=== PATIENT | female | born 1945 | race Caucasian/White ===

== ENCOUNTER 2019-11-19 09:52 | Outpatient (RCR) | payer MEDICARE, SELFPAY ==
[2019-11-19 10:36] LABS: Basophils % 0.5 %; Eosinophils # 0.1 10^3/uL (0.0-0.8); Eosinophils % 1.2 %; Hematocrit 37.4 % (37.0-47.0); Hemoglobin 12.3 g/dL (11.5-15.3); Lymphocytes # 0.9 10^3/uL (0.8-4.8); Lymphocytes % 22.3 %; Mean Corpuscular HGB Conc 32.9 g/dL (30.0-36.0); Mean Corpuscular Hemoglobin 30.3 pg (28.0-34.0); Mean Corpuscular Volume 92.1 fL (81-99); Mean Platelet Volume 8.6 fL (7.4-10.4); Monocytes # 0.4 10^3/uL (0.2-0.9); Monocytes % 9.7 %; Neutrophils # 2.7 10^3/uL (1.8-7.7); Neutrophils % 66.1 %; Nucleated Red Blood Cells % 0 %; Platelet Count 184 10^3/cmm (130-400); Red Blood Count 4.06 10^6/uL (4.1-5.3)
[2019-11-19 10:47] LABS: Alanine Aminotransferase 17 U/L (0-33); Albumin Level 4.7 g/dL (3.5-5.2); Alkaline Phosphatase 93 IU/L (35-105); Anion Gap 13.7 (5-19); Aspartate Amino Transferase 24 U/L (0-32); Blood Urea Nitrogen 16 mg/dL (8-23); Calcium 10.5 mg/Dl (8.8-10.2); Carbon Dioxide 28 mmol/L (22-29); Chloride 98 mmol/L (98-107); Globulin 3.1 g/dL (1.3-4.6); Glucose 93 mg/dL (74-106); Potassium 4.7 mmol/L (3.5-5.1); Sodium 135 mmol/L (136-145); Total Bilirubin 0.4 mg/dL (0.15-1.2); Total Protein 7.8 g/dL (6.6-8.7)
--- NOTE | 2019-11-19 12:26 | ONC FU_ITS ---
Dr. Gaxiola follow up note Patient: Gudelia More Unit #: [id number]: 1945 Dicatated By: Mike Gaxiola M.D.Date of Visit:Nov 19, 2019 Onc Med Follow-up/Prog Note History of Present Illness: Mrs. Gudelia More, is a 74-year-old female who recently underwent follow-up mammogram on 04/12/2019 which showed asymmetry in the upper outer quadrant of right breast subsequently underwent mammogram/us on 05/12/2019, which showed at 10:00 position 4 cm from the nipple of right breast, a hypoechoic area, BI-RADS 4C-suspicious moderate Thereafter underwent ultrasound-guided biopsy of breast lesion on 05/26/2019 which showed infiltrating ductal carcinoma. She was referred to Dr. Oliva, who performed right breast lumpectomy with sentinel lymph node biopsy on 06/24/2019 and final pathology report came back 1.7 x 1 cm infiltrating ductal carcinoma with clear surgical margins,T1c and sentinel lymph node was negative for metastatic disease N0 ER +92% and ME +9% and HER-2/alena negative Oncotype DX score done on 08/13/2019 showed low recurrence score at 15, with that absolute benefit from chemotherapy is less than 1% and distance recurrence risk at 9 years with aromatase inhibitor is about 4% Started on Arimidex 1 mg by mouth daily along with vitamin D and calcium supplements on 07/07/2019 for 5 years s/p postlumpectomy radiation therapy Patient tolerated procedure well patient denies any history of hormone supplements, she has history of hysterectomy for heavy menstrual periods around age 38 Came for follow-up, denies any specific complaints, no hot flashes, no fever or chills, no nausea or vomiting, no diarrhea constipation, tolerating Arimidex well. Medications: Anastrozole 1 Tablet (of 1 mg) Tablet Oral daily, Atorvastatin Calcium 1 Tablet (of 10 mg) Oral daily, Calcium 1 Tablet (of 600 mg) Oral daily, Cholecalciferol 1 Tablet (of 800 Units) Oral daily, Metoprolol Succinate ER 2 Tablet (of 50 mg) Tablet SR 24 HR Oral daily, raNITIdine HCl 1 Capsule (of 300 mg) Oral daily Allergies: No Known Allergies. Review of Systems: Review of Systems is not available for this patient. Vital Signs: Performed on Nov 19, 2019 11:28 Height - 65.00 in Weight - 154.4 lbs (HIGH) BSA - 1.77 sq.m BMI - 25.69 Temperature - 97.3 F (LOW) Pulse - 62 /min Respiration - 18 /min BP - 144/68 mm(hg) (HIGH) O2 Sat - 99 % Pain - 0 Performance Status: 0 - Fully active, able to carry on all predisease activities without restrictions. (ECOG) Physical Examination: Respiratory - Lungs are clear to auscultation without rhonchi or wheezing, Cardiovascular - Regular rate and rhythm of heart, Extremities - no edema. Lab/Imaging: Test performed on Aug 04, 2019 09:49 Sodium 131 mmol/L Potassium 4.0 mmol/L Chloride 96 mmol/L CO2 23 mmol/L Anion Gap 16.0 BUN 17 mg/dL Creatinine 0.8 mg/dL Cr Clearance (Est) 62.1300 mL/min Glucose 106 mg/dl Calcium 9.7 mg/dL Protein, Total 7.5 g/dL Albumin 4.3 g/dL Globulin 3.2 gm/dL Bilirubin, Total 0.4 mg/dL ALT (SGPT) 12 U/L AST (SGOT) 20 U/L Alkaline Phosphatase 81 U/L WBC 4.4 /cmm RBC 4.04 10 6/cmm HGB 13.2 g/dl HCT 36.6 % MCV 90.5 /cmm MCH 32.6 pg MCHC 36.0 g/dl RDW 12.5 % Platelet Count 199 10 3/cmm MPV 6.7 fl Neutrophils 2.9 10 3/cmm Lymphocytes 1.0 10 3/cmm Monocytes 0.5 10 3/cmm Eosinophils 0.1 10 3/cmm Basophils 0.0 10 3/cmm Neutrophil % 65.0 % Lymphocyte % 22.7 % Monocyte % 10.4 % Eosinophil % 1.2 % Basophils % 0.7 % Impression: Infiltrating ductal carcinoma of right breast status post right lumpectomy and sentinel lymph node biopsy done on 06/24/2019 final pathology report showed 1.7 x 1 cm tumor with clear surgical margins T1c, and sentinel lymph node biopsy showed no evidence of metastatic disease N0 Stage (pT1c, pN0,Mx ), IA ER 92%, ME 9%, HER-2/alena negative Oncotype DX score checked on 08/13/2019 showed low recurrence score at 15, with that distant recurrence risk at 9 years is about 4% and absolute benefit from chemotherapy is less than 1%. Next Arimidex 1 mg by mouth daily was started on 07/07/2019 for 5 years along with vitamin D and calcium supplement Status post postlumpectomy radiation therapy Plan: Discussed with patient regarding her labs white blood count 4 hemoglobin 12.3 crit 37.4 platelets 184,000 CMP within normal limit except calcium 10.5 Clinically, patient is doing well tolerating adjuvant hormonal therapy with Arimidex, well but with expected side effects. Her follow-up lab shows mild hypercalcemia , patient on vitamin D and calcium supplement along with Arimidex so we will hold her calcium supplement while continue vitamin D and then she will return to clinic in 6 months with CBC CMP. Signed By: Mike Gaxiola M.D. <<Signature on File>>
== END 2019-12-10 23:59 | disposition home or self-care (01) ==
LOC: ONCMED 09:52
PROVIDERS: Family Provider Family Medicine; Visit Provider Internal Medicine Hematology & Oncology
DX: C50.411 Malignant neoplasm of upper-outer quadrant of right female breast (principal); Z17.0 Estrogen receptor positive status [ER+]; Z79.811 Long term (current) use of aromatase inhibitors; Z92.3 Personal history of irradiation
CPT/HCPCS: 80053; 85025; 99214

== ENCOUNTER 2020-05-19 08:41 | Outpatient (CLI) | payer MEDICARE, SELFPAY ==
[2020-05-19 09:06] LABS: Basophils % 0.7 %; Eosinophils # 0.1 10^3/uL (0.0-0.8); Eosinophils % 1.6 %; Hematocrit 37.6 % (37.0-47.0); Hemoglobin 12.4 g/dL (11.5-15.3); Lymphocytes # 1.1 10^3/uL (0.8-4.8); Mean Corpuscular Hemoglobin 30.7 pg (28.0-34.0); Mean Corpuscular Volume 93.1 fL (81-99); Mean Platelet Volume 8.4 fL (7.4-10.4); Monocytes # 0.4 10^3/uL (0.2-0.9); Monocytes % 9.4 %; Neutrophils # 2.64 10^3/uL (1.8-7.7); Neutrophils % 61.8 %; Nucleated Red Blood Cells % 0 %; Platelet Count 174 10^3/cmm (130-400); Red Blood Count 4.04 10^6/uL (4.1-5.3); White Blood Count 4.3 10^3/uL (4.0-10.0)
[2020-05-19 09:28] LABS: Alanine Aminotransferase 23 U/L (0-33); Albumin Level 4.3 g/dL (3.5-5.2); Alkaline Phosphatase 85 IU/L (35-105); Anion Gap 13.9 (5-19); Aspartate Amino Transferase 27 U/L (0-32); Blood Urea Nitrogen 17 mg/dL (8-23); Calcium 9.7 mg/dL (8.5-10.5); Carbon Dioxide 26 mmol/L (22-29); Chloride 100 mmol/L (98-107); Globulin 3.1 g/dL (1.3-4.6); Glucose 158 mg/dL (65-115); Osmolality Calculated 282 mOsm/kg (285-295); Potassium 3.9 mmol/L (3.5-5.1); Sodium 136 mmol/L (136-145); Total Bilirubin 0.2 mg/dL (0.15-1.2); Total Protein 7.4 g/dL (6.6-8.7)
--- NOTE | 2020-05-19 10:24 | ONC FU_ITS ---
Dr. Gaxiola follow up note Patient: Gudelia More Unit #: [id number]: 1945 Dicatated By: Mike Gaxiola M.D.Date of Visit:May 19, 2020 Onc Med Follow-up/Prog Note History of Present Illness: Mrs. Gudelia More, is a 74-year-old female who recently underwent follow-up mammogram on 04/12/2019 which showed asymmetry in the upper outer quadrant of right breast subsequently underwent mammogram/us on 05/12/2019, which showed at 10:00 position 4 cm from the nipple of right breast, a hypoechoic area, BI-RADS 4C-suspicious moderate Thereafter underwent ultrasound-guided biopsy of breast lesion on 05/26/2019 which showed infiltrating ductal carcinoma. She was referred to Dr. Oliva, who performed right breast lumpectomy with sentinel lymph node biopsy on 06/24/2019 and final pathology report came back 1.7 x 1 cm infiltrating ductal carcinoma with clear surgical margins,T1c and sentinel lymph node was negative for metastatic disease N0 ER +92% and ND +9% and HER-2/alena negative Oncotype DX score done on 08/13/2019 showed low recurrence score at 15, with that absolute benefit from chemotherapy is less than 1% and distance recurrence risk at 9 years with aromatase inhibitor is about 4% Started on Arimidex 1 mg by mouth daily along with vitamin D and calcium supplements on 07/07/2019 for 5 years s/p postlumpectomy radiation therapy Patient tolerated procedure well patient denies any history of hormone supplements, she has history of hysterectomy for heavy menstrual periods around age 38 Came for follow-up, denies any specific complaints, no fever chills, no nausea or vomiting, no diarrhea constipation, no new bony pains, occasionally hot flashes otherwise tolerating Arimidex well Medications: Anastrozole 1 Tablet (of 1 mg) Tablet Oral daily, Atorvastatin Calcium 1 Tablet (of 10 mg) Oral daily, Calcium 1 Tablet (of 600 mg) Oral daily, Cholecalciferol 1 Tablet (of 800 Units) Oral daily, Metoprolol Succinate ER 2 Tablet (of 50 mg) Tablet SR 24 HR Oral daily, raNITIdine HCl 1 Capsule (of 300 mg) Oral daily Allergies: No Known Allergies. Review of Systems: Constitutional - Appetite is fair and weight has increased. No fever, chills, hot flashes, or night sweats. Energy level is fair, ENMT - No sinus congestion/drainage. No mouth sores. No sore throat or difficulty swallowing, Hematologic/Lymphatic - No abnormal bruising or bleeding, Respiratory - No shortness of breath. No cough. No pleuritic pain or hemoptysis, Cardiovascular - No angina pain. No palpitations, Gastrointestinal - No nausea or vomiting. No heartburn or acid reflux. No diarrhea, occasional constipation. No blood in the stool or black stools, Genitourinary (F) - No dysuria or hematuria. No urinary frequency. No urgency or incontinence, Musculoskeletal - Positive for joint pain, Neurologic - No headache, occasional dizziness. No numbness/paresthesias or other focal neurologic symptoms, Psychiatric - No anxiety or depression. No insomnia. Vital Signs: Performed on May 19, 2020 10:02 Height - 65.00 in Weight - 164.8 lbs (HIGH) BSA - 1.82 sq.m BMI - 27.42 Temperature - 97.7 F (LOW) Pulse - 64 /min Respiration - 16 /min BP - 140/67 mm(hg) O2 Sat - 97 % Pain - 0 Performance Status: 0 - Fully active, able to carry on all predisease activities without restrictions. (ECOG) Physical Examination: Respiratory - Lungs are clear, Cardiovascular - Regular rate and rhythm of heart, Gastrointestinal - Soft, bowel sounds present, Extremities - No visible edema or rash. Lab/Imaging: Most recent lab results are not available for this patient. Impression: Infiltrating ductal carcinoma of right breast status post right lumpectomy and sentinel lymph node biopsy done on 06/24/2019 final pathology report showed 1.7 x 1 cm tumor with clear surgical margins T1c, and sentinel lymph node biopsy showed no evidence of metastatic disease N0 Stage (pT1c, pN0,Mx ), IA ER 92%, ND 9%, HER-2/alena negative Oncotype DX score checked on 08/13/2019 showed low recurrence score at 15, with that distant recurrence risk at 9 years is about 4% and absolute benefit from chemotherapy is less than 1%. Next Arimidex 1 mg by mouth daily was started on 07/07/2019 for 5 years along with vitamin D and calcium supplement Status post postlumpectomy radiation therapy Plan: Discussed with patient regarding her labs white blood count 4.3 hemoglobin 12.4 hematocrit 37.6 platelets 174,000 CMP within normal limits Clinically, patient is doing well with no signs symptoms suggestive of recurrence of disease, tolerating Arimidex/vitamin D well, will continue with same and she will return to clinic in 4 months with CBC CMP and follow-up mammogram Signed By: Mike Gaxiola M.D. <<Signature on File>>
== END 2020-05-19 08:42 | disposition home or self-care (01) ==
LOC: ONCMED 08:45
PROVIDERS: PCP Family Medicine; Visit Provider Internal Medicine Hematology & Oncology
DX: C50.411 Malignant neoplasm of upper-outer quadrant of right female breast (principal); Z17.0 Estrogen receptor positive status [ER+]; Z79.811 Long term (current) use of aromatase inhibitors; Z92.3 Personal history of irradiation
CPT/HCPCS: 36415; 80053; 85025; 99214

== ENCOUNTER 2020-09-15 09:31 | Outpatient (CLI) | payer MEDICARE, SELFPAY ==
--- NOTE | 2020-09-15 09:34 | MM_ITS ---
WS: [id number] Bilateral diagnostic digital mammogram, 09/15/2020 Clinical Data: HX OF BREAST CA Comparison: 06/24/2019, 06/08/2019, 04/12/2019, 06/10/2017, 05/26/2017, 01/24/2015, 08/27/2012, 11/20/2009. Findings: There is distortion of the right breast in the upper outer quadrant from treatment. No evidence of re sidual mass is seen. There are no spiculated masses or clustered calcifications. The left breast is n ormal. The breast parenchymal pattern shows heterogeneous density. MM/[id number] Impression: 1. Distortion of the upper outer quadrant right breast is result of treatment. 2. No evidence of residual carcinoma or recurrence. 3. Negative left breast. 4. Recommend annual mammograms. BIRADS: 2-Benign FOLLOW UP: 1 Year Follow-up The CAD roving or yarn color checker was used.
[2020-09-15 10:05] LABS: Basophils % 0.8 %; Eosinophils # 0.1 10^3/uL (0.0-0.8); Eosinophils % 2.7 %; Hematocrit 38.2 % (37.0-47.0); Hemoglobin 12.7 g/dL (11.5-15.3); Lymphocytes # 1.2 10^3/uL (0.8-4.8); Lymphocytes % 25.2 %; Mean Corpuscular HGB Conc 33.2 g/dL (30.0-36.0); Mean Corpuscular Hemoglobin 31.2 pg (28.0-34.0); Mean Corpuscular Volume 93.9 fL (81-99); Mean Platelet Volume 9.2 fL (7.4-10.4); Monocytes # 0.5 10^3/uL (0.2-0.9); Monocytes % 9.7 %; Neutrophils # 2.97 10^3/uL (1.8-7.7); Neutrophils % 61.4 %; Nucleated Red Blood Cells % 0 %; Platelet Count 167 10^3/cmm (130-400); Red Blood Count 4.07 10^6/uL (4.1-5.3); Red Cell Distribution Width 11.9 % (12.1-15.1); White Blood Count 4.8 10^3/uL (4.0-10.0)
[2020-09-15 10:24] LABS: Alanine Aminotransferase 30 U/L (0-33); Albumin Level 4.5 g/dL (3.5-5.2); Alkaline Phosphatase 103 IU/L (35-105); Anion Gap 14.4 (5-19); Aspartate Amino Transferase 32 U/L (0-32); Blood Urea Nitrogen 16 mg/dL (8-23); Calcium 9.6 mg/dL (8.5-10.5); Carbon Dioxide 26 mmol/L (22-29); Chloride 103 mmol/L (98-107); Globulin 3.3 g/dL (1.3-4.6); Glucose 100 mg/dL (65-115); Osmolality Calculated 289 mOsm/kg (285-295); Potassium 4.4 mmol/L (3.5-5.1); Sodium 139 mmol/L (136-145); Total Bilirubin 0.3 mg/dL (0.15-1.2); Total Protein 7.8 g/dL (6.6-8.7)
[2020-09-15 11:00] LABS: Slide Review Slide Review Perform
== END 2020-09-15 09:32 | disposition home or self-care (01) ==
LOC: ONCMED 09:32
PROVIDERS: PCP Family Medicine; Visit Provider Internal Medicine Hematology & Oncology
DX: Z85.3 Personal history of malignant neoplasm of breast (principal)
CPT/HCPCS: 36415; 77066; 80053; 85025

== ENCOUNTER 2020-09-19 05:54 | Outpatient (CLI) | payer MEDICARE, SELFPAY ==
--- NOTE | 2020-09-19 16:28 | ONC FU_ITS ---
Dr. Gaxiola follow up note Patient: Gudelia More Unit #: [id number]: 1945 Dicatated By: Mike Gaxiola M.D.Date of Visit:Sep 19, 2020 Onc Med Follow-up/Prog Note History of Present Illness: Mrs. Gudelia More, is a 74-year-old female who recently underwent follow-up mammogram on 04/12/2019 which showed asymmetry in the upper outer quadrant of right breast subsequently underwent mammogram/us on 05/12/2019, which showed at 10:00 position 4 cm from the nipple of right breast, a hypoechoic area, BI-RADS 4C-suspicious moderate Thereafter underwent ultrasound-guided biopsy of breast lesion on 05/26/2019 which showed infiltrating ductal carcinoma. She was referred to Dr. Oliva, who performed right breast lumpectomy with sentinel lymph node biopsy on 06/24/2019 and final pathology report came back 1.7 x 1 cm infiltrating ductal carcinoma with clear surgical margins,T1c and sentinel lymph node was negative for metastatic disease N0 ER +92% and IA +9% and HER-2/alena negative Oncotype DX score done on 08/13/2019 showed low recurrence score at 15, with that absolute benefit from chemotherapy is less than 1% and distance recurrence risk at 9 years with aromatase inhibitor is about 4% Started on Arimidex 1 mg by mouth daily along with vitamin D and calcium supplements on 07/07/2019 for 5 years s/p postlumpectomy radiation therapy Patient tolerated procedure well patient denies any history of hormone supplements, she has history of hysterectomy for heavy menstrual periods around age 38 Follow-up mammogram done on September 15, 2020 shows distortion of upper outer quadrant right breast as a result of treatment no evidence of residual carcinoma Came for follow-up, denies any specific complaints, no fever chills, no nausea or vomiting, no diarrhea or constipation, no bony pains, no hot flashes, tolerating Arimidex well Medications: Anastrozole 1 Tablet (of 1 mg) Tablet Oral daily, Atorvastatin Calcium 1 Tablet (of 10 mg) Oral daily, Calcium 1 Tablet (of 600 mg) Oral daily, Cholecalciferol 1 Tablet (of 800 Units) Oral daily, Metoprolol Succinate ER 2 Tablet (of 50 mg) Tablet SR 24 HR Oral daily, raNITIdine HCl 1 Capsule (of 300 mg) Oral daily Allergies: No Known Allergies. Review of Systems: Review of Systems is not available for this patient. Vital Signs: Performed on Sep 19, 2020 15:58 Height - 65.00 in Weight - 164.6 lbs (LOW) BSA - 1.82 sq.m BMI - 27.39 Temperature - 98.3 F (LOW) Pulse - 69 /min Respiration - 16 /min BP - 133/66 mm(hg) O2 Sat - 96 % Pain - 0 Performance Status: 0 - Fully active, able to carry on all predisease activities without restrictions. (ECOG) Physical Examination: Respiratory - Lungs are clear to auscultation, Cardiovascular - Regular rate and rhythm of heart, Gastrointestinal - Soft, bowel sounds present, Extremities - No visible edema. Lab/Imaging: Test performed on Sep 15, 2020 09:55 Sodium 139 mmol/L Potassium 4.4 mmol/L Chloride 103 mmol/L CO2 26 mmol/L Anion Gap 14.4 BUN 16 mg/dL Creatinine 0.9 mg/dL Cr Clearance (Est) 61.7800 mL/min Glucose 100 mg/dL Osmolality - Calculated 289 mOsm/kg Calcium 9.6 mg/dL Protein, Total 7.8 g/dL Albumin 4.5 g/dL Globulin 3.3 g/dL Bilirubin, Total 0.3 mg/dL ALT (SGPT) 30 U/L AST (SGOT) 32 U/L Alkaline Phosphatase 103 IU/L WBC 4.8 10 3/uL RBC 4.07 10 6/uL HGB 12.7 g/dL HCT 38.2 % MCV 93.9 fL MCH 31.2 pg MCHC 33.2 g/dL RDW 11.9 % Platelet Count 167 10 3/cmm MPV 9.2 fL Neutrophils 2.97 10 3/uL Lymphocytes 1.2 10 3/uL Monocytes 0.5 10 3/uL Eosinophils 0.1 10 3/uL Basophils 0.0 10 3/uL Neutrophil % 61.4 % Lymphocyte % 25.2 % Monocyte % 9.7 % Eosinophil % 2.7 % Basophils % 0.8 % NRBC % 0 % CBC Slide Review Slide Review Perform SLIDE REVIEW AGREES WITH AUTOMATED RESULTS Impression: Infiltrating ductal carcinoma of right breast status post right lumpectomy and sentinel lymph node biopsy done on 06/24/2019 final pathology report showed 1.7 x 1 cm tumor with clear surgical margins T1c, and sentinel lymph node biopsy showed no evidence of metastatic disease N0 Stage (pT1c, pN0,Mx ), IA ER 92%, IA 9%, HER-2/alena negative Oncotype DX score checked on 08/13/2019 showed low recurrence score at 15, with that distant recurrence risk at 9 years is about 4% and absolute benefit from chemotherapy is less than 1%. Next Arimidex 1 mg by mouth daily was started on 07/07/2019 for 5 years along with vitamin D and calcium supplement Status post postlumpectomy radiation therapy Plan: Discussed with patient regarding her labs white blood count 4.8 hemoglobin 12.7 hematocrit 38.2 platelets 167,000 CMP within normal limits and follow-up mammogram shows no evidence of residual or recurrence of disease Clinically, patient is doing well with no new signs symptoms, tolerating adjuvant therapy with Arimidex along with vitamin D/calcium well. We will continue with same, mammogram finding discussed with patient, she expressed full understanding she will return to clinic in 4 months with CBC CMP Signed By: Mike Gaxiola M.D. <<Signature on File>>
== END 2020-09-19 05:55 | disposition home or self-care (01) ==
LOC: ONCMED 05:56
PROVIDERS: PCP Family Medicine; Visit Provider Internal Medicine Hematology & Oncology
DX: C50.811 Malignant neoplasm of overlapping sites of right female breast (principal); Z17.1 Estrogen receptor negative status [ER-]; E55.9 Vitamin D deficiency, unspecified; E58 Dietary calcium deficiency; Z79.818 Long term (current) use of other agents affecting estrogen receptors and estrogen levels; Z90.11 Acquired absence of right breast and nipple; Z92.3 Personal history of irradiation
CPT/HCPCS: 99214

== ENCOUNTER 2021-01-18 07:45 | Outpatient (CLI) | payer MEDICARE, SELFPAY ==
[2021-01-18 08:44] LABS: Basophils % 0.9 %; Eosinophils # 0.1 10^3/uL (0.0-0.8); Eosinophils % 1.7 %; Hematocrit 39.1 % (37.0-47.0); Hemoglobin 13.3 g/dL (11.5-15.3); Lymphocytes # 1.2 10^3/uL (0.8-4.8); Lymphocytes % 26.4 %; Mean Corpuscular Hemoglobin 31.4 pg (28.0-34.0); Mean Corpuscular Volume 92.2 fL (81-99); Mean Platelet Volume 8.6 fL (7.4-10.4); Monocytes # 0.5 10^3/uL (0.2-0.9); Monocytes % 11.5 %; Neutrophils # 2.73 10^3/uL (1.8-7.7); Neutrophils % 59.1 %; Nucleated Red Blood Cells % 0 %; Platelet Count 187 10^3/cmm (130-400); Red Blood Count 4.24 10^6/uL (4.1-5.3); Red Cell Distribution Width 11.9 % (12.1-15.1); White Blood Count 4.6 10^3/uL (4.0-10.0)
[2021-01-18 09:09] LABS: Alanine Aminotransferase 24 U/L (0-33); Albumin Level 4.3 g/dL (3.5-5.2); Alkaline Phosphatase 103 IU/L (35-105); Anion Gap 13.2 (5-19); Aspartate Amino Transferase 24 U/L (0-32); Blood Urea Nitrogen 15 mg/dL (8-23); Calcium 9.9 mg/dL (8.5-10.5); Carbon Dioxide 27 mmol/L (22-29); Chloride 102 mmol/L (98-107); Globulin 3.5 g/dL (1.3-4.6); Glucose 90 mg/dL (65-115); Osmolality Calculated 286 mOsm/kg (285-295); Potassium 4.2 mmol/L (3.5-5.1); Sodium 138 mmol/L (136-145); Total Bilirubin 0.3 mg/dL (0.15-1.2); Total Protein 7.8 g/dL (6.6-8.7)
--- NOTE | 2021-01-18 10:39 | ONC FU_ITS ---
Dr. Gaxiola follow up note Patient: Gudelia More Unit #: [id number]: 1945 Dicatated By: Mike Gaxiola M.D.Date of Visit:Jan 18, 2021 Onc Med Follow-up/Prog Note History of Present Illness: Mrs. Gudelia More, is a 75-year-old female who recently underwent follow-up mammogram on 04/12/2019 which showed asymmetry in the upper outer quadrant of right breast subsequently underwent mammogram/us on 05/12/2019, which showed at 10:00 position 4 cm from the nipple of right breast, a hypoechoic area, BI-RADS 4C-suspicious moderate Thereafter underwent ultrasound-guided biopsy of breast lesion on 05/26/2019 which showed infiltrating ductal carcinoma. She was referred to Dr. Oliva, who performed right breast lumpectomy with sentinel lymph node biopsy on 06/24/2019 and final pathology report came back 1.7 x 1 cm infiltrating ductal carcinoma with clear surgical margins,T1c and sentinel lymph node was negative for metastatic disease N0 ER +92% and [place] +9% and HER-2/alena negative Oncotype DX score done on 08/13/2019 showed low recurrence score at 15, with that absolute benefit from chemotherapy is less than 1% and distance recurrence risk at 9 years with aromatase inhibitor is about 4% Started on Arimidex 1 mg by mouth daily along with vitamin D and calcium supplements on 07/07/2019 for 5 years s/p postlumpectomy radiation therapy Patient tolerated procedure well patient denies any history of hormone supplements, she has history of hysterectomy for heavy menstrual periods around age 38 Follow-up mammogram done on September 15, 2020 shows distortion of upper outer quadrant right breast as a result of treatment no evidence of residual carcinoma tolerating Arimidex well Came for follow-up, denies any specific complaints, no fever chills, no nausea or vomiting, no diarrhea or constipation, no new bony pains except chronic right wrist pain/discomfort, as per patient her PMDs suggested her physical therapy. No heart flashes, otherwise tolerating Arimidex along with vitamin D and calcium well Medications: Anastrozole 1 Tablet (of 1 mg) Tablet Oral daily, Atorvastatin Calcium 1 Tablet (of 10 mg) Oral daily, Calcium 1 Tablet (of 600 mg) Oral daily, Cholecalciferol 1 Tablet (of 800 Units) Oral daily, Metoprolol Succinate ER 2 Tablet (of 50 mg) Tablet SR 24 HR Oral daily, raNITIdine HCl 1 Capsule (of 300 mg) Oral daily Allergies: No Known Allergies. Review of Systems: Review of Systems is not available for this patient. Vital Signs: Performed on Jan 18, 2021 10:19 Height - 65.00 in Weight - 163.2 lbs (LOW) BSA - 1.81 sq.m BMI - 27.16 Temperature - 97.4 F (LOW) Pulse - 71 /min Respiration - 18 /min BP - 149/75 mm(hg) (HIGH) O2 Sat - 96 % Pain - 0 Fatigue - 5 Performance Status: 0 - Fully active, able to carry on all predisease activities without restrictions. (ECOG) Physical Examination: Respiratory - Lungs are clear to auscultation, Cardiovascular - Regular rate and rhythm of heart, Gastrointestinal - Soft, bowel sounds present, Extremities - No visible edema or rash. Lab/Imaging: Test performed on Sep 15, 2020 09:55 Sodium 139 mmol/L Potassium 4.4 mmol/L Chloride 103 mmol/L CO2 26 mmol/L Anion Gap 14.4 BUN 16 mg/dL Creatinine 0.9 mg/dL Cr Clearance (Est) 61.7800 mL/min Glucose 100 mg/dL Osmolality - Calculated 289 mOsm/kg Calcium 9.6 mg/dL Protein, Total 7.8 g/dL Albumin 4.5 g/dL Globulin 3.3 g/dL Bilirubin, Total 0.3 mg/dL ALT (SGPT) 30 U/L AST (SGOT) 32 U/L Alkaline Phosphatase 103 IU/L WBC 4.8 10 3/uL RBC 4.07 10 6/uL HGB 12.7 g/dL HCT 38.2 % MCV 93.9 fL MCH 31.2 pg MCHC 33.2 g/dL RDW 11.9 % Platelet Count 167 10 3/cmm MPV 9.2 fL Neutrophils 2.97 10 3/uL Lymphocytes 1.2 10 3/uL Monocytes 0.5 10 3/uL Eosinophils 0.1 10 3/uL Basophils 0.0 10 3/uL Neutrophil % 61.4 % Lymphocyte % 25.2 % Monocyte % 9.7 % Eosinophil % 2.7 % Basophils % 0.8 % NRBC % 0 % CBC Slide Review Slide Review Perform SLIDE REVIEW AGREES WITH AUTOMATED RESULTS Impression: Infiltrating ductal carcinoma of right breast status post right lumpectomy and sentinel lymph node biopsy done on 06/24/2019 final pathology report showed 1.7 x 1 cm tumor with clear surgical margins T1c, and sentinel lymph node biopsy showed no evidence of metastatic disease N0 Stage (pT1c, pN0,Mx ), IA ER 92%, [place] 9%, HER-2/alena negative Oncotype DX score checked on 08/13/2019 showed low recurrence score at 15, with that distant recurrence risk at 9 years is about 4% and absolute benefit from chemotherapy is less than 1%. Next Arimidex 1 mg by mouth daily was started on 07/07/2019 for 5 years along with vitamin D and calcium supplement Status post postlumpectomy radiation therapy Plan: Discussed with patient regarding her labs white blood count 4.6 hemoglobin 13.3 hematocrit 39.1 platelets 187,000 CMP within normal limits Clinically, patient is doing well with no new signs symptom suggestive of recurrence of disease tolerating Arimidex along with vitamin D/calcium well her follow-up lab work-up is within normal range, will continue with same and she will return to clinic in 6 months with CBC CMP Signed By: Mike Gaxiola M.D. <<Signature on File>>
== END 2021-01-18 07:46 | disposition home or self-care (01) ==
LOC: ONCMED 07:47
PROVIDERS: PCP Family Medicine; Visit Provider Internal Medicine Hematology & Oncology
DX: C50.411 Malignant neoplasm of upper-outer quadrant of right female breast (principal); Z17.0 Estrogen receptor positive status [ER+]; Z79.811 Long term (current) use of aromatase inhibitors
CPT/HCPCS: 36415; 80053; 85025; 99214

== ENCOUNTER 2021-07-19 13:34 | Outpatient (CLI) | payer MEDICARE, SELFPAY ==
[2021-07-19 14:29] LABS: Basophils % 0.7 %; Eosinophils # 0.1 10^3/uL (0.0-0.8); Eosinophils % 1.6 %; Hematocrit 35.4 % (37.0-47.0); Hemoglobin 12.3 g/dL (11.5-15.3); Lymphocytes # 1.5 10^3/uL (0.8-4.8); Lymphocytes % 28.1 %; Mean Corpuscular HGB Conc 34.7 g/dL (30.0-36.0); Mean Corpuscular Hemoglobin 31.9 pg (28.0-34.0); Mean Corpuscular Volume 91.7 fl (81-99); Mean Platelet Volume 8.8 fL (7.4-10.4); Monocytes # 0.7 10^3/uL (0.2-0.9); Monocytes % 12.6 %; Neutrophils % 56.6 %; Nucleated Red Blood Cells % 0 %; Platelet Count 178 10^3/cmm (130-400); Red Blood Count 3.86 10^6/uL (4.1-5.3); Red Cell Distribution Width 12.3 % (12.1-15.1); White Blood Count 5.5 10^3/uL (4.0-10.0)
[2021-07-19 14:59] LABS: Alanine Aminotransferase 34 U/L (0-33); Albumin Level 4.3 g/dL (3.5-5.2); Alkaline Phosphatase 88 IU/L (35-105); Anion Gap 14.1 (5-19); Aspartate Amino Transferase 41 U/L (0-32); Blood Urea Nitrogen 15 mg/dL (8-23); Carbon Dioxide 24 mmol/L (22-29); Chloride 100 mmol/L (98-107); Globulin 3.2 g/dL (1.3-4.6); Glucose 100 mg/dL (65-115); Osmolality Calculated 279 mOsm/kg (285-295); Potassium 4.1 mmol/L (3.5-5.1); Sodium 134 mmol/L (136-145); Total Bilirubin 0.3 mg/dL (0.15-1.2); Total Protein 7.5 g/dL (6.6-8.7)
--- NOTE | 2021-07-20 14:00 | ONC FU_ITS ---
Dr. Gaxiola follow up note Patient: Gudelia More Unit #: [id number]: 1945 Dicatated By: Mike Gaxiola M.D.Date of Visit:Jul 19, 2021 Onc Med Follow-up/Prog Note History of Present Illness: Mrs. Gudelia More, is a 75-year-old female who recently underwent follow-up mammogram on 04/12/2019 which showed asymmetry in the upper outer quadrant of right breast subsequently underwent mammogram/us on 05/12/2019, which showed at 10:00 position 4 cm from the nipple of right breast, a hypoechoic area, BI-RADS 4C-suspicious moderate Thereafter underwent ultrasound-guided biopsy of breast lesion on 05/26/2019 which showed infiltrating ductal carcinoma. She was referred to Dr. Oliva, who performed right breast lumpectomy with sentinel lymph node biopsy on 06/24/2019 and final pathology report came back 1.7 x 1 cm infiltrating ductal carcinoma with clear surgical margins,T1c and sentinel lymph node was negative for metastatic disease N0 ER +92% and WI +9% and HER-2/alena negative Oncotype DX score done on 08/13/2019 showed low recurrence score at 15, with that absolute benefit from chemotherapy is less than 1% and distance recurrence risk at 9 years with aromatase inhibitor is about 4% Started on Arimidex 1 mg by mouth daily along with vitamin D and calcium supplements on 07/07/2019 for 5 years s/p postlumpectomy radiation therapy Patient tolerated procedure well patient denies any history of hormone supplements, she has history of hysterectomy for heavy menstrual periods around age 38 Follow-up mammogram done on September 15, 2020 shows distortion of upper outer quadrant right breast as a result of treatment no evidence of residual carcinoma tolerating Arimidex well Came for follow-up, denies any specific complaints, no fever chills, no nausea or vomiting, no diarrhea or constipation, no new bony pains, tolerating Arimidex well along with vitamin D and calcium Medications: Anastrozole 1 Tablet (of 1 mg) Tablet Oral daily, Atorvastatin Calcium 1 Tablet (of 10 mg) Oral daily, Calcium 1 Tablet (of 600 mg) Oral daily, Cholecalciferol 1 Tablet (of 800 Units) Oral daily, Metoprolol Succinate ER 2 Tablet (of 50 mg) Tablet SR 24 HR Oral daily, raNITIdine HCl 1 Capsule (of 300 mg) Oral daily Allergies: No Known Allergies. Review of Systems: Review of Systems is not available for this patient. Vital Signs: Vitals are not available for this patient. Performance Status: 0 - Fully active, able to carry on all predisease activities without restrictions. (ECOG) Physical Examination: Respiratory - Lungs are clear to auscultation, Cardiovascular - Regular rate and rhythm of heart, Gastrointestinal - Soft, bowel sounds present, Extremities - No visible edema. Lab/Imaging: Most recent lab results are not available for this patient. Impression: Infiltrating ductal carcinoma of right breast status post right lumpectomy and sentinel lymph node biopsy done on 06/24/2019 final pathology report showed 1.7 x 1 cm tumor with clear surgical margins T1c, and sentinel lymph node biopsy showed no evidence of metastatic disease N0 Stage (pT1c, pN0,Mx ), IA ER 92%, WI 9%, HER-2/alena negative Oncotype DX score checked on 08/13/2019 showed low recurrence score at 15, with that distant recurrence risk at 9 years is about 4% and absolute benefit from chemotherapy is less than 1%. Next Arimidex 1 mg by mouth daily was started on 07/07/2019 for 5 years along with vitamin D and calcium supplement Status post postlumpectomy radiation therapy Plan: Discussed with patient regarding her labs white blood count 5.5 hemoglobin 12.3 hematocrit 35.4 platelets 178,000 CMP within normal limit except ALT 34 compared to 24 previously AST 41 Clinically, patient doing well with no new signs symptom suggestive of disease progression, tolerating Arimidex along with vitamin D and calcium well, she will return to clinic in 6 months with CBC CMP and follow-up mammogram which is already scheduled for September 2021 Signed By: Mike Gaxiola M.D. <<Signature on File>>
== END 2021-07-19 13:35 | disposition home or self-care (01) ==
LOC: ONCMED 13:39
PROVIDERS: PCP Family Medicine; Visit Provider Internal Medicine Hematology & Oncology
DX: C50.411 Malignant neoplasm of upper-outer quadrant of right female breast (principal); Z17.0 Estrogen receptor positive status [ER+]; Z79.811 Long term (current) use of aromatase inhibitors; Z79.899 Other long term (current) drug therapy; Z92.3 Personal history of irradiation
CPT/HCPCS: 36415; 80053; 85025; 99214

== ENCOUNTER 2021-09-17 09:41 | Outpatient (CLI) | payer MEDICARE, SELFPAY ==
--- NOTE | 2021-09-17 09:59 | MM_ITS ---
WS: [id number] BILATERAL DIGITAL DIAGNOSTIC MAMMOGRAM MAMMOGRAPHY WITH CAD CLINICAL INFORMATION: HX OF BREAST CA COMPARISON: September 15, 2020 TECHNIQUE: Bilateral CC, MLO, and ML views. FINDINGS: Scattered fibroglandular densities bilaterally. Prior postoperative changes lumpectomy upper-outer qu adrant right breast with parenchymal fibrosis. Right breast is otherwise unchanged in appearance. Unr emarkable and unchanged left breast. Vascular calcification. A few punctate calcifications right [address]. No suspicious focal mass, asymmetry, calcifications, or architectural distortion. No evidence of vita gnancy. MM/[place] [id number] IMPRESSION: BI-RADS: 2-Benign FOLLOW UP: 1 Year Follow-up Recommend return to annual diagnostic mammography.
== END 2021-09-17 09:42 | disposition home or self-care (01) ==
PROVIDERS: PCP Family Medicine; Visit Provider Family Medicine
DX: Z85.3 Personal history of malignant neoplasm of breast (principal)
CPT/HCPCS: 77066

== ENCOUNTER 2022-02-05 11:13 | Outpatient (CLI) | payer MEDICARE, SELFPAY ==
[2022-02-05 12:39] LABS: Basophils % 0.7 %; Eosinophils # 0.1 10^3/uL (0.0-0.8); Eosinophils % 2.8 %; Hematocrit 38.8 % (37.0-47.0); Hemoglobin 13.1 g/dL (11.5-15.3); Lymphocytes % 23.4 %; Mean Corpuscular HGB Conc 33.8 g/dL (30.0-36.0); Mean Corpuscular Hemoglobin 31.5 pg (28.0-34.0); Mean Corpuscular Volume 93.3 fl (81-99); Monocytes # 0.4 10^3/uL (0.2-0.9); Monocytes % 9.7 %; Neutrophils # 2.72 10^3/uL (1.8-7.7); Neutrophils % 62.9 %; Nucleated Red Blood Cells % 0 %; Platelet Count 188 10^3/cmm (130-400); Red Blood Count 4.16 10^6/uL (4.1-5.3); Red Cell Distribution Width 11.9 % (12.1-15.1); White Blood Count 4.3 10^3/uL (4.0-10.0)
[2022-02-05 13:06] LABS: Alanine Aminotransferase 28 U/L (0-33); Albumin Level 4.5 g/dL (3.5-5.2); Alkaline Phosphatase 112 IU/L (35-105); Blood Urea Nitrogen 16 mg/dL (8-23); Calcium 9.9 mg/dL (8.5-10.5); Carbon Dioxide 26 mmol/L (22-29); Chloride 101 mmol/L (98-107); Globulin 3.3 g/dL (1.3-4.6); Glucose 134 mg/dL (65-115); Osmolality Calculated 287 mOsm/kg (285-295); Sodium 137 mmol/L (136-145); Total Bilirubin 0.3 mg/dL (0.15-1.2); Total Protein 7.8 g/dL (6.6-8.7)
[2022-02-05 13:11] LABS: Anion Gap 14.2 (5-19); Aspartate Amino Transferase 23 U/L (0-32); Potassium 4.2 mmol/L (3.5-5.1)
--- NOTE | 2022-02-11 07:50 | ONC FU_ITS ---
Dr. Gaxiola follow up note Patient: Gudelia More Unit #: [id number]: 1945 Dicatated By: Mike Gaxiola M.D.Date of Visit:Feb 05, 2022 Onc Med Follow-up/Prog Note History of Present Illness: Mrs. Gudelia More, is a 76-year-old female who recently underwent follow-up mammogram on 04/12/2019 which showed asymmetry in the upper outer quadrant of right breast subsequently underwent mammogram/us on 05/12/2019, which showed at 10:00 position 4 cm from the nipple of right breast, a hypoechoic area, BI-RADS 4C-suspicious moderate Thereafter underwent ultrasound-guided biopsy of breast lesion on 05/26/2019 which showed infiltrating ductal carcinoma. She was referred to Dr. Oliva, who performed right breast lumpectomy with sentinel lymph node biopsy on 06/24/2019 and final pathology report came back 1.7 x 1 cm infiltrating ductal carcinoma with clear surgical margins,T1c and sentinel lymph node was negative for metastatic disease N0 ER +92% and CO +9% and HER-2/alena negative Oncotype DX score done on 08/13/2019 showed low recurrence score at 15, with that absolute benefit from chemotherapy is less than 1% and distance recurrence risk at 9 years with aromatase inhibitor is about 4% Started on Arimidex 1 mg by mouth daily along with vitamin D and calcium supplements on 07/07/2019 for 5 years s/p postlumpectomy radiation therapy Patient tolerated procedure well patient denies any history of hormone supplements, she has history of hysterectomy for heavy menstrual periods around age 38 Follow-up mammogram done on September 15, 2020 shows distortion of upper outer quadrant right breast as a result of treatment no evidence of residual carcinoma Follow-up mammogram done on September 17, 2021 shows BI-RADS 2, benign tolerating Arimidex well Came for follow-up, denies any specific complaints, no fever chills, no nausea or vomiting, no diarrhea constipation, no new bony pains, no hot flashes, no jaundice, no weight loss, tolerating Arimidex/vitamin D/calcium well otherwise Medications: Anastrozole 1 Tablet (of 1 mg) Tablet Oral daily, Atorvastatin Calcium 1 Tablet (of 10 mg) Oral daily, Calcium 1 Tablet (of 600 mg) Oral daily, Cholecalciferol 1 Tablet (of 800 Units) Oral daily, Metoprolol Succinate ER 2 Tablet (of 50 mg) Tablet SR 24 HR Oral daily, raNITIdine HCl 1 Capsule (of 300 mg) Oral daily Allergies: No Known Allergies. Review of Systems: Review of Systems is not available for this patient. Vital Signs: Performed on Feb 05, 2022 13:38 Height - 65.00 in Weight - 159.2 lbs (LOW) BSA - 1.80 sq.m BMI - 26.49 Temperature - 97.2 F (LOW) Pulse - 58 /min (LOW) Respiration - 16 /min BP - 154/67 mm(hg) (HIGH) O2 Sat - 98 % Pain - 0 Fatigue - 0 Performance Status: 0 - Fully active, able to carry on all predisease activities without restrictions. (ECOG) Physical Examination: Respiratory - Lungs are clear to auscultation, Cardiovascular - Regular rate and rhythm of heart, Gastrointestinal - Soft, bowel sounds present, Extremities - No visible edema or rash. Lab/Imaging: Most recent lab results are not available for this patient. Impression: Infiltrating ductal carcinoma of right breast status post right lumpectomy and sentinel lymph node biopsy done on 06/24/2019 final pathology report showed 1.7 x 1 cm tumor with clear surgical margins T1c, and sentinel lymph node biopsy showed no evidence of metastatic disease N0 Stage (pT1c, pN0,Mx ), IA ER 92%, CO 9%, HER-2/alena negative Oncotype DX score checked on 08/13/2019 showed low recurrence score at 15, with that distant recurrence risk at 9 years is about 4% and absolute benefit from chemotherapy is less than 1%. Next Arimidex 1 mg by mouth daily was started on 07/07/2019 for 5 years along with vitamin D and calcium supplement Status post postlumpectomy radiation therapy Plan: Discussed with patient regarding her labs white blood count 4.3 hemoglobin 13.1 hematocrit 38.8 platelets 188,000 CMP within normal limits except glucose 134, alk phos 112 compared to 88 previously Follow-up mammogram done in September 2021 shows BI-RADS 2, benign findings Clinically, patient doing well with no new signs symptoms history of recurrence of disease her lab work-up is within normal range so we will continue to monitor she is tolerating Arimidex along with vitamin D and calcium well, patient is requesting prescription for Arimidex, we will provide that andHer follow-up mammogram done in September 2021 shows benign findings, her next yearly mammogram will be due in September 2022 , she will return to clinic in 6 months with CBC CMP Signed By: Mike Gaxiola M.D. <<Signature on File>>
== END 2022-02-05 11:14 | disposition home or self-care (01) ==
PROVIDERS: PCP Family Medicine; Visit Provider Internal Medicine Hematology & Oncology
DX: C50.811 Malignant neoplasm of overlapping sites of right female breast (principal); Z17.0 Estrogen receptor positive status [ER+]; E55.9 Vitamin D deficiency, unspecified; Z79.818 Long term (current) use of other agents affecting estrogen receptors and estrogen levels; Z92.3 Personal history of irradiation
CPT/HCPCS: 36415; 80053; 85025; 99214

== ENCOUNTER 2022-08-08 10:23 | Oncology outpatient (recurring) (ONCR) | payer MEDICARE, SELFPAY ==
[2022-08-08 11:37] LABS: Basophils # 0.1 10^3/uL (0.0-0.1); Basophils % 0.8 %; Eosinophils # 0.1 10^3/uL (0.0-0.8); Eosinophils % 0.8 %; Hematocrit 39.6 % (37.0-47.0); Hemoglobin 13.5 g/dL (11.5-15.3); Lymphocytes # 1.5 10^3/uL (0.8-4.8); Lymphocytes % 24.7 %; Mean Corpuscular HGB Conc 34.1 g/dL (30.0-36.0); Mean Corpuscular Hemoglobin 31.5 pg (28.0-34.0); Mean Corpuscular Volume 92.5 fl (81-99); Mean Platelet Volume 8.9 fL (7.4-10.4); Monocytes # 0.6 10^3/uL (0.2-0.9); Monocytes % 9.5 %; Neutrophils # 3.84 10^3/uL (1.8-7.7); Nucleated Red Blood Cells % 0 %; Platelet Count 181 10^3/cmm (130-400); Red Blood Count 4.28 10^6/uL (4.1-5.3); Red Cell Distribution Width 12.4 % (12.1-15.1)
[2022-08-08 11:53] LABS: Alanine Aminotransferase 27 U/L (0-33); Albumin Level 4.3 g/dL (3.5-5.2); Alkaline Phosphatase 95 U/L (35-105); Anion Gap 13.5 (5-19); Aspartate Amino Transferase 31 U/L (0-32); Blood Urea Nitrogen 17 mg/dL (8-23); Carbon Dioxide 26 mmol/L (22-29); Chloride 102 mmol/L (98-107); Globulin 3.3 g/dL (1.3-4.6); Glucose 103 mg/dL (65-115); Osmolality Calculated 286 mOsm/kg (285-295); Potassium 4.5 mmol/L (3.5-5.1); Sodium 137 mmol/L (136-145); Total Bilirubin 0.5 mg/dL (0.15-1.2); Total Protein 7.6 g/dL (6.6-8.7)
== END 2022-08-09 23:59 | disposition home or self-care (01) ==
PROVIDERS: PCP Family Medicine; Visit Provider Internal Medicine Hematology & Oncology
DX: C50.811 Malignant neoplasm of overlapping sites of right female breast (principal); Z17.0 Estrogen receptor positive status [ER+]; Z79.818 Long term (current) use of other agents affecting estrogen receptors and estrogen levels; Z92.3 Personal history of irradiation
CPT/HCPCS: 80053; 85025; 99214

== ENCOUNTER 2022-09-20 08:46 | Outpatient (CLI) | payer MEDICARE, SELFPAY ==
--- NOTE | 2022-09-20 09:04 | MM_ITS ---
WS: [id number] DIAGNOSTIC BILATERAL DIGITAL BREAST TOMOSYNTHESIS MAMMOGRAPHY WITH CAD HISTORY: HX OF BREAST CA COMPARISON: 09/17/2021, 09/15/2020 TECHNIQUE: Bilateral craniocaudad, mediolateral oblique, and mediolateral views are submitted with to mosynthesis and SM. Computer aided detection utilized. Breast composition: There are scattered areas of fibroglandular density. Postsurgical changes with fi brosis and distortion upper outer quadrant of the RIGHT breast. Distortion is similar to the prior st udy. LEFT breast is negative. MM/[place] [id number] IMPRESSION: BI-RADS: 2-Benign FOLLOW UP: 1 Year Follow-up
== END 2022-09-20 08:47 | disposition home or self-care (01) ==
LOC: RAD 08:47
PROVIDERS: PCP Family Medicine; Visit Provider Family Medicine
DX: Z85.3 Personal history of malignant neoplasm of breast (principal)
CPT/HCPCS: 77062; G0279

== ENCOUNTER 2023-03-10 12:30 | Oncology outpatient (recurring) (ONCR) | payer MEDICARE, SELFPAY ==
[2023-03-10 12:59] LABS: Basophils # 0.1 10^3/uL (0.0-0.1); Eosinophils # 0.2 10^3/uL (0.0-0.8); Eosinophils % 2.8 %; Hematocrit 40.7 % (37.0-47.0); Hemoglobin 13.5 g/dL (11.5-15.3); Lymphocytes # 1.9 10^3/uL (0.8-4.8); Lymphocytes % 31.3 %; Mean Corpuscular HGB Conc 33.2 g/dL (30.0-36.0); Mean Corpuscular Hemoglobin 31.7 pg (28.0-34.0); Mean Corpuscular Volume 95.5 fl (81-99); Mean Platelet Volume 8.4 fL (7.4-10.4); Monocytes # 0.6 10^3/uL (0.2-0.9); Monocytes % 9.8 %; Neutrophils # 3.38 10^3/uL (1.8-7.7); Neutrophils % 54.9 %; Nucleated Red Blood Cells % 0 %; Platelet Count 182 10^3/cmm (130-400); Red Blood Count 4.26 10^6/uL (4.1-5.3); Red Cell Distribution Width 12.2 % (12.1-15.1); White Blood Count 6.1 10^3/uL (4.0-10.0)
[2023-03-10 13:26] LABS: Alanine Aminotransferase 21 U/L (0-33); Albumin Level 4.4 g/dL (3.5-5.2); Alkaline Phosphatase 98 U/L (35-105); Anion Gap 16.3 (5-19); Aspartate Amino Transferase 27 U/L (0-32); Blood Urea Nitrogen 15 mg/dL (8-23); Calcium 9.6 mg/dL (8.5-10.5); Carbon Dioxide 23 mmol/L (22-29); Chloride 100 mmol/L (98-107); Globulin 3.2 g/dL (1.3-4.6); Glucose 88 mg/dL (65-115); Osmolality Calculated 280 mOsm/kg (285-295); Potassium 4.3 mmol/L (3.5-5.1); Sodium 135 mmol/L (136-145); Total Bilirubin 0.3 mg/dL (0.15-1.2); Total Protein 7.6 g/dL (6.6-8.7)
== END 2023-04-09 23:59 | disposition home or self-care (01) ==
PROVIDERS: Nurse Practitioner Family; PCP Family Medicine; Visit Provider Internal Medicine Hematology & Oncology
DX: C50.811 Malignant neoplasm of overlapping sites of right female breast (principal); Z17.0 Estrogen receptor positive status [ER+]; Z79.811 Long term (current) use of aromatase inhibitors; Z92.3 Personal history of irradiation; Z90.710 Acquired absence of both cervix and uterus
CPT/HCPCS: 36415; 80053; 85025; 99213

== ENCOUNTER 2023-09-22 09:32 | Outpatient (CLI) | payer MEDICARE, SELFPAY ==
--- NOTE | 2023-09-22 10:00 | MM_ITS ---
WS: [id number] VIEWS: MLO, CC, and ML views both breasts. 3D digital tomosynthesis is also included in this exam. Comparison made with prior exam of 09/15/2020, 09/17/2021, and 09/20/2022.. Findings: Stable appearing postsurgical architectural distortion and skin dimpling seen in the upper outer quad rant of the RIGHT breast. No new suspicious nodule or mass in either breast. The breasts are heteroge neously dense which may obscure small masses. Impression: MM/[place] [id number] BI-RADS: 2-Benign finding. FOLLOW-UP: 1 Year Follow-up This mammogram was also analyzed by the Computer Aided Detection System R2 Imag e Case Filler.
== END 2023-09-22 09:33 | disposition home or self-care (01) ==
LOC: RAD 09:32
PROVIDERS: PCP Family Medicine; Visit Provider Family Medicine
DX: C50.411 Malignant neoplasm of upper-outer quadrant of right female breast (principal)
CPT/HCPCS: 77062; G0279

== ENCOUNTER 2023-10-14 09:02 | Oncology outpatient (recurring) (ONCR) | payer MEDICARE, SELFPAY ==
[2023-10-14 09:29] VITALS: BP 132/70; PULSE 66; RESP 16; TEMP 35.7; O2SAT 99
[2023-10-14 09:49] LABS: Basophils % 0.6 %; Eosinophils # 0.1 10^3/uL (0.0-0.8); Hematocrit 38.4 % (36-47); Lymphocytes # 1.2 10^3/uL (0.8-4.8); Lymphocytes % 24.6 %; Mean Corpuscular HGB Conc 34.1 g/dL (30-55); Mean Corpuscular Hemoglobin 31.6 pg (27-33); Mean Corpuscular Volume 92.5 fl (85-98); Mean Platelet Volume 8.7 fL (7.4-10.4); Monocytes # 0.5 10^3/uL (0.2-0.9); Monocytes % 10.5 %; Neutrophils # 3.13 10^3/uL (1.8-7.7); Neutrophils % 63.1 %; Nucleated Red Blood Cells % 0 %; Platelet Count 172 10^3/cmm (157-399); Red Blood Count 4.15 10^6/uL (3.85-5.65); Red Cell Distribution Width 12.2 % (12.1-15.1); White Blood Count 4.96 10^3/uL (3.29-11.43)
[2023-10-14 10:10] LABS: Alanine Aminotransferase 17 U/L (0-33); Albumin Level 4.5 g/dL (3.5-5.2); Alkaline Phosphatase 102 U/L (35-105); Anion Gap 13.2 (5-19); Aspartate Amino Transferase 27 U/L (0-32); Blood Urea Nitrogen 19 mg/dL (8-23); Calcium 9.7 mg/dL (8.5-10.5); Carbon Dioxide 28 mmol/L (22-29); Chloride 102 mmol/L (98-107); Globulin 3.1 g/dL (1.3-4.6); Glucose 103 mg/dL (65-115); Osmolality Calculated 291 mOsm/kg (285-295); Potassium 4.2 mmol/L (3.5-5.1); Sodium 139 mmol/L (136-145); Total Bilirubin 0.5 mg/dL (0.15-1.2); Total Protein 7.6 g/dL (6.6-8.7)
== END 2023-11-09 23:59 | disposition home or self-care (01) ==
PROVIDERS: Nurse Practitioner Family; PCP Family Medicine; Visit Provider Internal Medicine Hematology & Oncology
DX: C50.811 Malignant neoplasm of overlapping sites of right female breast (principal); Z17.0 Estrogen receptor positive status [ER+]; Z79.811 Long term (current) use of aromatase inhibitors; Z92.3 Personal history of irradiation; Z90.710 Acquired absence of both cervix and uterus
CPT/HCPCS: 36415; 80053; 85025; 99214

== ENCOUNTER 2024-04-15 11:37 | Oncology outpatient (recurring) (ONCR) | payer MEDICARE, SELFPAY ==
[2024-04-15 12:37] LABS: Basophils % 0.7 %; Eosinophils # 0.1 10^3/uL (0.0-0.8); Eosinophils % 1.7 %; Hematocrit 35.4 % (36-47); Lymphocytes # 1.8 10^3/uL (0.8-4.8); Lymphocytes % 33.3 %; Mean Corpuscular HGB Conc 34.5 g/dL (30-55); Mean Corpuscular Hemoglobin 31.4 pg (27-33); Mean Corpuscular Volume 91.2 fl (85-98); Mean Platelet Volume 8.9 fL (7.4-10.4); Monocytes # 0.7 10^3/uL (0.2-0.9); Neutrophils # 2.73 10^3/uL (1.8-7.7); Neutrophils % 50.9 %; Nucleated Red Blood Cells % 0 %; Platelet Count 185 10^3/cmm (157-399); Red Blood Count 3.88 10^6/uL (3.85-5.65); Red Cell Distribution Width 12.4 % (12.1-15.1); White Blood Count 5.37 10^3/uL (3.29-11.43)
[2024-04-15 13:06] LABS: Alanine Aminotransferase 20 U/L (0-33); Albumin Level 4.1 g/dL (3.5-5.2); Alkaline Phosphatase 88 U/L (35-105); Anion Gap 15.1 (5-19); Aspartate Amino Transferase 23 U/L (0-32); Blood Urea Nitrogen 17 mg/dL (8-23); Calcium 9.6 mg/dL (8.5-10.5); Carbon Dioxide 26 mmol/L (22-29); Chloride 103 mmol/L (98-107); Glucose 111 mg/dL (65-115); Osmolality Calculated 292 mOsm/kg (285-295); Potassium 4.1 mmol/L (3.5-5.1); Sodium 140 mmol/L (136-145); Total Bilirubin 0.3 mg/dL (0.15-1.2); Total Protein 7.1 g/dL (6.6-8.7)
== END 2024-05-09 23:59 | disposition home or self-care (01) ==
PROVIDERS: Nurse Practitioner Family; PCP Family Medicine; Visit Provider Internal Medicine Medical Oncology
DX: Z17.0 Estrogen receptor positive status [ER+]; Z79.811 Long term (current) use of aromatase inhibitors; Z92.3 Personal history of irradiation; Z90.710 Acquired absence of both cervix and uterus; C50.411 Malignant neoplasm of upper-outer quadrant of right female breast
CPT/HCPCS: 36415; 80053; 85025; 99214

== ENCOUNTER 2024-09-29 08:24 | Oncology outpatient (recurring) (ONCR) | payer MEDICARE, SELFPAY ==
--- NOTE | 2024-09-29 09:00 | MM_ITS ---
WS: [id number] DIAGNOSTIC BILATERAL DIGITAL BREAST TOMOSYNTHESIS MAMMOGRAPHY WITH CAD HISTORY: surveillance COMPARISON: 09/22/2023, 09/20/2022 TECHNIQUE: Bilateral craniocaudad, mediolateral oblique, and mediolateral views are submitted with to mosynthesis and SM. Computer aided detection utilized. Breast composition: There are scattered areas of fibroglandular density. Postsurgical change with distortion upper outer quadrant of the RIGHT breast are stable. No new mass or calcifications. MM/MM diag BI tomosynthesis [id number] IMPRESSION: BI-RADS: 2 - Benign. FOLLOW UP: 1 Year Follow-up
== END 2024-10-09 23:59 | disposition home or self-care (01) ==
PROVIDERS: PCP Family Medicine; Visit Provider Internal Medicine Medical Oncology
DX: C50.411 Malignant neoplasm of upper-outer quadrant of right female breast (principal); Z17.0 Estrogen receptor positive status [ER+]; Z79.811 Long term (current) use of aromatase inhibitors; Z92.3 Personal history of irradiation; Z90.710 Acquired absence of both cervix and uterus; C50.919 Malignant neoplasm of unspecified site of unspecified female breast
CPT/HCPCS: 77062; G0279

== ENCOUNTER 2024-10-25 15:30 | Oncology outpatient (recurring) (ONCR) | payer MEDICARE, SELFPAY ==
[2024-10-19 11:36] LABS: Basophils % 0.6 %; Eosinophils # 0.1 10^3/uL (0.0-0.8); Eosinophils % 1.6 %; Hematocrit 38.5 % (36-47); Lymphocytes # 1.4 10^3/uL (0.8-4.8); Lymphocytes % 29.4 %; Mean Corpuscular HGB Conc 33.8 g/dL (30-55); Mean Corpuscular Hemoglobin 31.1 pg (27-33); Mean Corpuscular Volume 92.1 fl (85-98); Mean Platelet Volume 8.4 fL (7.4-10.4); Monocytes # 0.5 10^3/uL (0.2-0.9); Monocytes % 10.1 %; Neutrophils # 2.83 10^3/uL (1.8-7.7); Neutrophils % 58.1 %; Nucleated Red Blood Cells % 0 %; Platelet Count 181 10^3/cmm (157-399); Red Blood Count 4.18 10^6/uL (3.85-5.65); White Blood Count 4.87 10^3/uL (3.29-11.43)
[2024-10-19 11:59] LABS: Alanine Aminotransferase 25 U/L (0-33); Albumin Level 4.5 g/dL (3.5-5.2); Alkaline Phosphatase 87 U/L (35-105); Anion Gap 14.3 (5-19); Aspartate Amino Transferase 30 U/L (0-32); Blood Urea Nitrogen 18 mg/dL (8-23); Calcium 9.8 mg/dL (8.5-10.5); Carbon Dioxide 26 mmol/L (22-29); Chloride 99 mmol/L (98-107); Globulin 3.3 g/dL (1.3-4.6); Glucose 93 mg/dL (65-115); Osmolality Calculated 282 mOsm/kg (285-295); Potassium 4.3 mmol/L (3.5-5.1); Sodium 135 mmol/L (136-145); Total Bilirubin 0.4 mg/dL (0.15-1.2); Total Protein 7.8 g/dL (6.6-8.7)
== END 2024-11-09 23:59 | disposition home or self-care (01) ==
LOC: RAD 10-26 → ONCMED 10-26 09:10
PROVIDERS: PCP Family Medicine; Visit Provider Nurse Practitioner Family
DX: Z53.9 Procedure and treatment not carried out, unspecified reason
CPT/HCPCS: 36415; 80053; 85025; 99214

== ENCOUNTER 2024-10-29 09:24 | Outpatient (CLI) | payer MEDICARE, SELFPAY ==
--- NOTE | 2024-10-29 09:26 | US_ITS ---
WS: [email or web address] US pelvic limited [id number] HISTORY: EARLY SATIETY/PELVIC DISCOMFORT W/PALPATION COMPARISON: None available. Prior hysterectomy. No midline pelvic mass. Neither ovary is identified. There is no ascites. Urinary bladder is only minimally distended. US/US pelvic limited [id number] IMPRESSION: Status post hysterectomy. No pelvic mass identified by ultrasound.
== END 2024-10-29 09:25 | disposition home or self-care (01) ==
LOC: RAD 09:24
PROVIDERS: PCP Family Medicine; Visit Provider Nurse Practitioner Family
DX: C50.411 Malignant neoplasm of upper-outer quadrant of right female breast (principal); Z90.710 Acquired absence of both cervix and uterus; R68.81 Early satiety; R63.4 Abnormal weight loss; R10.2 Pelvic and perineal pain
CPT/HCPCS: 76857

== ENCOUNTER 2025-03-25 08:45 | Emergency (ER) | payer MEDICARE, SELFPAY ==
[2025-03-25 08:51] VITALS: BP 168/79; PULSE 72; RESP 16; TEMP 36.6; O2SAT 98; BMI 26.1
--- NOTE | 2025-03-25 08:56 | XR_ITS ---
WS: [id number] Exam: XR chest 1V portable [id number] Date/Time of Exam: 03/25/2025 9:02 AM Reason For Exam: dyspnea/cough Comparison 04/15/2019. Lungs are fully inflated and clear. Normal cardiomediastinal silhouette. No pleural effusions. Regional bony structures are intact. Advanced DJD of both shoulders. XR/XR chest 1V portable [id number] IMPRESSION: 1. No acute cardiopulmonary finding.
--- NOTE | 2025-03-25 08:56 | CT_ITS ---
WS: [id number] CT HEAD NONCONTRAST HISTORY: AMS TECHNIQUE: Contiguous axial imaging performed through the brain. Bone and soft tissue windows. Sagittal and coronal reformats reviewed. All CT scans at [facility] use at least one of these dose optimization techniques: automated exposure control; mA and/or kV adjustment per patient size (includes targeted exams where dose is matched to clinical indication); or iterative reconstruction. DLP: 1022.74 mGy.cm COMPARISON: 04/27/2019. Bilateral subdural hematomas are present. The largest hematoma along the LEFT cerebrum measures 1.9 cm in diameter. There is variable density suggesting this is subacute hematoma. There is significant mass effect upon the brain. Hematoma begins at the LEFT vertex and extends from the frontal over the parietal lobes. Smaller RIGHT parietal hematoma measures 0.9 cm in diameter. There is mild heterogeneity also suggesting a subacute hematoma. There is less mass effect upon the brain. Additional subarachnoid blood towards the frontal vertices. This is only a small amount of blood but bilateral. Tiny amount of acute blood products extends along the anterior interhemispheric falx. Suspicious for additional subarachnoid blood versus cortical contusion involving the anterior RIGHT temporal lobe. Ventricles and lateral ventricles are being effaced by the subdural hematomas. 4 mm of midline shift to the RIGHT. No intraventricular blood is identified. No prior large territory infarct. There is mild cerebellar volume loss. No interpeduncular blood. Basal cisterns are clear. No inferior displacement of the cerebellar tonsils. Paranasal sinuses: As visualized are clear. Mastoid air cells: Mastoid air cells are clear. Cerumen in the external auditory canals. Calvarium and scalp: Skull is intact with no soft tissue edema or swelling. CT/CT head wo con* [id number] IMPRESSION: 1. Bilateral subacute, subdural hematomas. 2. Largest subdural hematoma with mixed blood products on the LEFT measures 1. 9 cm in diameter and is extensive from the vertex over the frontal to parietal lobes. 3. RIGHT subacute subdural hematoma with a maximum diameter 0.9 cm. 4. 4 mm of midline shift to the RIGHT. 5. Sulci and lateral ventricles are being effaced. Effacement is most obvious when compared to the study from 04/27/2019. 6. Additional small amount of subarachnoid blood towards the frontal vertices and a smaller amount of subdural blood along the anterior interhemispheric falx . 7. No skull fracture identified. 8. Possible additional anterior RIGHT temporal lobe contusion versus subarachn oid blood. Notified Primo Shields DO at 03/25/2025 9:48 AM.
--- NOTE | 2025-03-25 08:57 | W.ED.GENADLT ---
HPI - General Adult General: Chief complaint: General Medical Stated complaint: a little confusion/anxiety Time Seen by Provider: 03/25/25 08:55 History of Present Illness: 79-year-old female presents today with her and one of her sons they have noticed she has been slightly more confused difficulty with word finding. This been progressively coming on for the last several days even weeks. Patient is difficult time speaking with word finding but has not she has not had any other issues she is not in any or balance or swallowing issues. She has been progressively more confused. No vomiting. They have not had complaints of elevated blood pressure or headache. Her last known well was going to have been several days 2 weeks ago difficult to fully evaluate but is distinctly outside of the 24-hour period Associated symptoms: Deny chest pain, dyspnea or rash Related Data Home Medications ?Medication ?Instructions ?Recorded ?Confirmed atorvastatin 10 mg tablet 10 mg PO QPM 08/08/22 03/25/25 cholecalciferol (vitamin D3) 25 25 mcg PO QAM 08/08/22 03/25/25 mcg (1,000 unit) capsule metoprolol succinate 50 mg 100 mg PO DAILY 08/08/22 03/25/25 tablet,extended release 24 hr Allergies Allergy/AdvReac Type Severity Reaction Status Date / Time No Known Allergies Allergy Verified 10/19/24 12:20 Review of Systems Const: Denies: fever(s) or chills Card: Denies: chest pain Resp: Denies: dyspnea GI: Denies: abdominal pain : Denies: dysuria, urinary frequency or urinary urgency Musc: Denies: neck pain or back pain Skin/Breast: Denies: rash PFSH ED PFSH: Medical History Hypertension Hyperlipidemia Diverticulitis Breast cancer Surgical History History of breast biopsy Right - 05/26/2019 History of cataract extraction Bilateral History of hysterectomy 1988 Social History Smoking and tobacco/nicotine status: never used tobacco/nicotine Alcohol intake: never Physical Exam Const: GENERAL APPEARANCE: cooperative ORIENTATION/CONSCIOUSNESS: Yes awake HENMT: COMMON NORMALS: normocephalic, atraumatic and hearing grossly normal bilaterally HEAD & SCALP: normocephalic and atraumatic Resp: COMMON NORMALS: normal respiratory effort, No retractions, No use of accessory muscles and clear to auscultation bilaterally AUSCULTATION: clear to auscultation bilaterally Cardio: COMMON NORMALS: regular rate, regular rhythm and No murmurs present (Cardio) RATE: regular rate RHYTHM: regular rhythm GI: COMMON NORMALS: Soft to palpation and No hepatosplenomegaly present AUSCULTATION: Yes normoactive bowel sounds PALPATION: Yes Soft to palpation, No Tenderness to palpation present (GI), No Guarding due to palpation present (GI) and Yes No hepatosplenomegaly present Extremity: COMMON NORMALS: normal to inspection, capillary refill normal, no clubbing, cyanosis or edema, no calf tenderness and no pedal edema Neuro: OTHER: Neurologic exam normal. No focal neurologic deficits. No facial droop form stripper strength equal bilaterally no arm drift or leg drift. Skin: COMMON NORMALS: no rashes or lesions noted GENERAL SKIN EXAM: no rashes or lesions noted Course Vital Signs: Vital signs: Vital Signs Temperature 97.9 F 03/25/25 08:51 Pulse Rate 75 03/25/25 10:53 Respiratory Rate 18 03/25/25 10:08 Blood Pressure 135/62 03/25/25 10:53 Pulse Oximetry 92 03/25/25 10:53 Oxygen Delivery Me thod Room Air 03/25/25 08:51 MDM - General Adult Medical Decision Making CT shows subarachnoid hemorrhage as well as significant subdural hemorrhage with flattening of the sulcal and midline shift. Patient is definitely symptomatic. Contacted [facility] and they excepted as a direct ER to ER to Dr. Chavez in the ER they will consult neurosurgery when she arrives. Discussed with patient and the family. Patient is stable at this time patient specifically does not want to fly I do not think it is medically necessary at this point. Patient stable at the time of transfer. Medical Records I reviewed the patient's medical records. Lab Data I reviewed the patient's lab results. 03/25/25 09:41 03/25/25 09:41 Radiology Impressions Chest X-Ray 03/25/25 08:56 IMPRESSION: 1. No acute cardiopulmonary finding. Head CT 03/25/25 08:56 IMPRESSION: 1. Bilateral subacute, subdural hematomas. 2. Largest subdural hematoma with mixed blood products on the LEFT measures 1.9 cm in diameter and is extensive from the vertex over the frontal to parietal lobes. 3. RIGHT subacute subdural hematoma with a maximum diameter 0.9 cm. 4. 4 mm of midline shift to the RIGHT. 5. Sulci and lateral ventricles are being effaced. Effacement is most obvious when compared to the study from 04/27/2019. 6. Additional small amount of subarachnoid blood towards the frontal vertices and a smaller amount of subdural blood along the anterior interhemispheric falx. 7. No skull fracture identified. 8. Possible additional anterior RIGHT temporal lobe contusion versus subarachnoid blood. Notified Primo Shields DO at 03/25/2025 9:48 AM. Laboratory Results WBC 5.41 10^3/uL (3.29-11.43) 03/25/25 09:41 RBC 3.98 10^6/uL (3.85-5.65) 03/25/25 09:41 Hgb 12.30 g/dL (11.27-16.99) 03/25/25 09:41 Hct 37.2 % (36-47) 03/25/25 09:41 MCV 93.5 fl (85-98) 03/25/25 09:41 MCH 30.9 pg (27-33) 03/25/25 09:41 MCHC 33.1 g/dL (30-55) 03/25/25 09:41 RDW 11.9 % (12.1-15.1) L 03/25/25 09:41 Plt Count 171 10^3/cmm (157-399) 03/25/25 09:41 MPV 8.6 fL (7.4-10.4) 03/25/25 09:41 Neut % (Auto) 69.8 % 03/25/25 09:41 Lymph % (Auto) 17.9 % 03/25/25 09:41 [place] % (Auto) 9.1 % 03/25/25 09:41 Eos % (Auto) 2.4 % 03/25/25 09:41 Baso % (Auto) 0.6 % 03/25/25 09:41 Neut # (Auto) 3.78 10^3/uL (1.8-7.7) 03/25/25 09:41 Lymph # (Auto) 1.0 10^3/uL (0.8-4.8) 03/25/25 09:41 [place] # (Auto) 0.5 10^3/uL (0.2-0.9) 03/25/25 09:41 Eos # (Auto) 0.1 10^3/uL (0.0-0.8) 03/25/25 09:41 Baso # (Auto) 0.0 10^3/uL (0.0-0.1) 03/25/25 09:41 Nucleated RBC % (auto) 0 % 03/25/25 09:41 Nucleated RBCs # 0.0 /100WBC 03/25/25 09:41 PT 13.30 SECONDS (12.1-14.9) 03/25/25 09:41 INR 0.94 (0.8-1.2) 03/25/25 09:41 APTT 27.6 SECONDS (23.9-36.7) 03/25/25 09:41 Sodium 141 mmol/L (136-145) 03/25/25 09:41 Potassium 4.6 mmol/L (3.5-5.1) 03/25/25 09:41 Chloride 104 mmol/L (98-107) 03/25/25 09:41 Carbon Dioxide 24 mmol/L (22-29) 03/25/25 09:41 Anion Gap 17.6 (5-19) 03/25/25 09:41 BUN 17 mg/dL (8-23) 03/25/25 09:41 Creatinine 1.0 mg/dL (0.5-0.9) H 03/25/25 09:41 GFR Calculation Not Reportable 03/25/25 09:41 Glucose 95 mg/dL (65-115) 03/25/25 09:41 Calculated Osmolality 293 mOsm/kg (285-295) 03/25/25 09:41 Calcium 9.7 mg/dL (8.5-10.5) 03/25/25 09:41 Total Bilirubin 0.4 mg/dL (0.15-1.2) 03/25/25 09:41 AST 23 U/L (0-32) 03/25/25 09:41 ALT 18 U/L (0-33) 03/25/25 09:41 Alkaline Phosphatase 92 U/L (35-105) 03/25/25 09:41 Troponin T Baseline 9 ng/L (0-10) 03/25/25 09:41 Total Protein 7.1 g/dL (6.6-8.7) 03/25/25 09:41 Albumin 4.5 g/dL (3.5-5.2) 03/25/25 09:41 Globulin 2.6 g/dL (1.3-4.6) 03/25/25 09:41 Urine Color Yellow (Yellow) 03/25/25 08:59 Urine Appearance Clear (CLEAR) 03/25/25 08:59 Urine pH 5.5 (5-7) 03/25/25 08:59 Ur Specific [place] 1.013 (1.005-1.030) 03/25/25 08:59 Urine Protein Negative (Negative) 03/25/25 08:59 Urine Glucose (UA) Negative (Normal) 03/25/25 08:59 Urine Ketones Negative (Negative) 03/25/25 08:59 Urine Blood Trace (Negative) A 03/25/25 08:59 Urine Nitrate Positive (Negative) A 03/25/25 08:59 Urine Bilirubin Negative (Negative) 03/25/25 08:59 Urine Urobilinogen 0.2 mg/dL (Negative) 03/25/25 08:59 Ur Leukocyte Esterase 3+ (Negative) A 03/25/25 08:59 Urine RBC 0-2 /hpf (0-2) 03/25/25 08:59 Urine WBC 21-50 /hpf (0-5) H 03/25/25 08:59 Ur Squamous Epith Cells 0-5 /hpf (0-5) 03/25/25 08:59 Amorphous Sediment Not Reportable 03/25/25 08:59 Urine Bacteria 4+ /hpf (NONE) H 03/25/25 08:59 Hyaline Casts 3.71 /lpf 03/25/25 08:59 All radiology interpretation(s) finalized by discharge Discharge Plan Discharge Patient Disposition: Xfer Short-Term Hosp Clinical Impression: Acute on chronic intracranial subdural hematoma, Subarachnoid bleed Condition: Stable Referrals: Cindy Olmstead MD [Primary Care Provider, [facility]] Print Language: Pashto Coding Level of Care Code ED Nursing Home Physician for Chg Jhonny
[2025-03-25 09:09] LABS: Bilirubin Urine Negative (Negative); Blood Urine Trace (Negative); Glucose Urine UA Negative (Normal); Ketones Urine Negative (Negative); Leukocyte Esterase Urine 3+ (Negative); Nitrate Urine Positive (Negative); Protein Urine Negative (Negative); Specific Gravity, Urine 1.013 (1.005-1.030); Urine Appearance Clear (CLEAR); Urine Color Yellow (Yellow); Urobilinogen Urine 0.2 mg/dL (Negative); pH Urine 5.5 (5-7)
--- NOTE | 2025-03-25 09:09 | ECG_ITS ---
[facility] 2025[facility]25 Pat Name: Gudelia More Department: Room: Gender: Female Manager Ct: : 1945 Requested By: Primo Ortiz Order Number: [id number] Francisco J MD: Corrine Camilo M.D. Measurements Intervals [place] Rate: 65 P: 23 OR: 115 QRS: 13 QRSD: 89 T: 1 QT: 386 QTc: 404 Interpretive Statements SINUS RHYTHM Nonspecific ST changes No previous ECG available for comparison Electronically Signed On 03-26-2025 12:02:44 CDT by Corrine Camilo M.D. [email or web address]
[2025-03-25 09:14] LABS: Add Urine Microscopic? YES; Bacteria Urine 4+ /hpf; Hyaline Casts Urine 3.71 /lpf; RBC Urine 0-2 /hpf (0-2); Squamous Epithelial Cell Urine 0-5 /hpf (0-5); WBC Urine 21-50 /hpf (0-5)
[2025-03-25 09:25] LABS: Add Urine Culture? Yes
[2025-03-25 09:55] LABS: Basophils % 0.6 %; Eosinophils # 0.1 10^3/uL (0.0-0.8); Eosinophils % 2.4 %; Hematocrit 37.2 % (36-47); Lymphocytes % 17.9 %; Mean Corpuscular HGB Conc 33.1 g/dL (30-55); Mean Corpuscular Hemoglobin 30.9 pg (27-33); Mean Corpuscular Volume 93.5 fl (85-98); Mean Platelet Volume 8.6 fL (7.4-10.4); Monocytes # 0.5 10^3/uL (0.2-0.9); Monocytes % 9.1 %; Neutrophils # 3.78 10^3/uL (1.8-7.7); Neutrophils % 69.8 %; Nucleated Red Blood Cells % 0 %; Platelet Count 171 10^3/cmm (157-399); Red Blood Count 3.98 10^6/uL (3.85-5.65); Red Cell Distribution Width 11.9 % (12.1-15.1); White Blood Count 5.41 10^3/uL (3.29-11.43)
[2025-03-25 10:04] LABS: Troponin(5th) Baseline 9 ng/L (0-10)
[2025-03-25 10:05] LABS: Alanine Aminotransferase 18 U/L (0-33); Albumin Level 4.5 g/dL (3.5-5.2); Alkaline Phosphatase 92 U/L (35-105); Anion Gap 17.6 (5-19); Aspartate Amino Transferase 23 U/L (0-32); Blood Urea Nitrogen 17 mg/dL (8-23); Calcium 9.7 mg/dL (8.5-10.5); Carbon Dioxide 24 mmol/L (22-29); Chloride 104 mmol/L (98-107); Creatinine Clr Calc Pharmacy 42.0692; Globulin 2.6 g/dL (1.3-4.6); Glucose 95 mg/dL (65-115); Osmolality Calculated 293 mOsm/kg (285-295); Potassium 4.6 mmol/L (3.5-5.1); Sodium 141 mmol/L (136-145); Total Bilirubin 0.4 mg/dL (0.15-1.2); Total Protein 7.1 g/dL (6.6-8.7)
[2025-03-25 10:08] VITALS: BP 139/57; PULSE 75; RESP 18; O2SAT 97
[2025-03-25 10:12] LABS: INR 0.94 (0.8-1.2)
[2025-03-25 10:13] LABS: Partial Thromboplastin Time 27.6 SECONDS (23.9-36.7)
[2025-03-25] MEDS: cefTRIAXone 1,000 mg SDV 1000 MG IVP (10:52)
[2025-03-25 10:53] VITALS: BP 135/62; PULSE 75; O2SAT 92
== END 2025-03-25 10:55 | disposition short-term general hospital (02) ==
PROVIDERS: Emergency Provider Family Medicine; PCP Family Medicine
DX: I62.01 Nontraumatic acute subdural hemorrhage (principal); I62.03 Nontraumatic chronic subdural hemorrhage; I60.9 Nontraumatic subarachnoid hemorrhage, unspecified; Z79.899 Other long term (current) drug therapy
CPT/HCPCS: 36415; 70450; 71045; 80053; 81001; 84484; 85025; 85610; 85730; 87077; 87086; 87186; 93005; 96374; 99285; J0696